=== PATIENT | male | born 1975 | race Caucasian/White ===

== ENCOUNTER 2020-10-17 10:44 | Inpatient (IN) | payer OTHER ==
[2020-10-17 11:14] VITALS: BMI 36.3
[2020-10-17] MEDS ORDERED: MAGNESIUM CITRATE 300 ML BOTTLE PO PRN (15:05)
[2020-10-17] MEDS ORDERED: BISMUTH SUBSALICYLATE 262 MG/15 ML BTL PO PRN (15:05)
[2020-10-17] MEDS ORDERED: METHOCARBAMOL 500 MG TABLET PO PRN (15:05)
[2020-10-17] MEDS ORDERED: NICOTINE POLACRILEX 2 MG GUM BUC PRN (15:05)
[2020-10-17] MEDS ORDERED: MAG HYDROX/AL HYDROX/SIMETH 30 ML UNIT-DOSE CUP PO PRN (15:05)
[2020-10-17] MEDS ORDERED: MAGNESIUM HYDROX 2400MG/30ML ORAL SUSPENSION 30 ML CUP PO PRN (15:05)
[2020-10-17] MEDS ORDERED: ACETAMINOPHEN 325 MG TABLET (FP) PO PRN ×2 (15:05)
[2020-10-17] MEDS ORDERED: MENTHOL/PHENOL 1 EACH UD MM PRN (15:05)
[2020-10-17] MEDS: hydrOXYzine PAMOATE 25 MG CAPSULE (FP) PO SCH ×2 (17:37→22:24)
[2020-10-17] MEDS: diazePAM 5 MG TABLET PO SCH ×2 (17:37→22:24)
[2020-10-17] MEDS: THIAMINE HCL 100 MG TABLET (FP) PO SCH (22:24)
[2020-10-17] MEDS: MELATONIN 5 MG TABLETS PO SCH (22:24)
[2020-10-18] MEDS: diazePAM 5 MG TABLET PO SCH ×4 (05:28→22:09)
[2020-10-18] MEDS: hydrOXYzine PAMOATE 25 MG CAPSULE (FP) PO SCH ×5 (05:28→22:09)
[2020-10-18] MEDS: IBUPROFEN 400 MG TABLET (FP) PO PRN (05:30)
[2020-10-18] MEDS ORDERED: METHADONE HCL 10 MG TABLET PO SCH (10:00)
[2020-10-18] MEDS ORDERED: METHADONE HCL 10 MG TABLET ONE (10:22)
[2020-10-18] MEDS ORDERED: METHADONE HCL 40 MG DISPERSABLE TABLET ONE (10:23)
[2020-10-18] MEDS: METHADONE 120 MG, METHADONE 20 MG PO SCH (10:23)
[2020-10-18] MEDS: PRENATAL VITAMINS W/ FOLIC ACID TABLET (FP) PO SCH (10:24)
[2020-10-18] MEDS: NICOTINE 14 MG/24 HOURS TOPICAL PATCH TD SCH (10:25)
[2020-10-18] MEDS: ATOMOXETINE HCL 25 MG CAPSULE PO SCH (11:50)
[2020-10-18] MEDS: ONDANSETRON *ODT* 4 MG TABLET SL PRN (17:44)
[2020-10-18] MEDS: MELATONIN 5 MG TABLETS PO SCH (22:09)
[2020-10-18] MEDS: THIAMINE HCL 100 MG TABLET (FP) PO SCH (22:09)
[2020-10-19] MEDS ORDERED: METHADONE HCL 10 MG TABLET ONE (04:11)
[2020-10-19] MEDS ORDERED: METHADONE HCL 40 MG DISPERSABLE TABLET ONE (04:12)
[2020-10-19] MEDS: METHADONE 120 MG, METHADONE 20 MG PO SCH (05:34)
[2020-10-19] MEDS: hydrOXYzine PAMOATE 25 MG CAPSULE (FP) PO SCH ×5 (05:35→22:21)
[2020-10-19] MEDS: diazePAM 5 MG TABLET PO SCH ×3 (05:35→22:21)
[2020-10-19 10:12] LABS: HEMATOCRIT 38.8 % (35.4-49); HEMOGLOBIN 12.8 GM/dL (11.7-16.9); MCH 32.1 pg (25.7-33.7); MEAN CELL VOLUME 97.2 fl (80-96); MEAN PLT VOLUME 9.2 fl (7.5-11.1); PLATELET COUNT 297 10^3/uL (134-434); RBC 3.99 M/mm3 (4.00-5.60); RDW 13.2 % (11.9-15.9); WHITE BLOOD COUNT 5.1 K/mm3 (4.0-10.0)
[2020-10-19 10:14] LABS: ALBUMIN 3.2 g/dl (3.4-5.0)
[2020-10-19 10:17] LABS: CREATININE 0.7 mg/dL (0.55-1.3)
[2020-10-19 10:18] LABS: BILIRUBIN,TOTAL 0.2 mg/dL (0.2-1); TOT PROT 7.6 g/dl (6.4-8.2)
[2020-10-19] MEDS: diazePAM 5 MG TABLET PO PRN ×2 (10:22→17:46)
[2020-10-19] MEDS: PRENATAL VITAMINS W/ FOLIC ACID TABLET (FP) PO SCH (10:22)
[2020-10-19] MEDS: ATOMOXETINE HCL 25 MG CAPSULE PO SCH (10:23)
[2020-10-19] MEDS: NICOTINE 14 MG/24 HOURS TOPICAL PATCH TD SCH (10:24)
[2020-10-19] MEDS: IBUPROFEN 400 MG TABLET (FP) PO PRN (10:25)
[2020-10-19] MEDS: ONDANSETRON *ODT* 4 MG TABLET SL PRN (17:48)
[2020-10-19] MEDS: MELATONIN 5 MG TABLETS PO SCH (22:20)
[2020-10-19] MEDS: THIAMINE HCL 100 MG TABLET (FP) PO SCH (22:20)
[2020-10-20] MEDS ORDERED: METHADONE HCL 10 MG TABLET ONE (04:25)
[2020-10-20] MEDS ORDERED: METHADONE HCL 40 MG DISPERSABLE TABLET ONE (04:26)
[2020-10-20] MEDS: hydrOXYzine PAMOATE 25 MG CAPSULE (FP) PO SCH ×5 (05:52→21:35)
[2020-10-20] MEDS: diazePAM 5 MG TABLET PO SCH ×2 (05:53→17:23)
[2020-10-20] MEDS: METHADONE 120 MG, METHADONE 20 MG PO SCH (05:53)
[2020-10-20] MEDS: ONDANSETRON *ODT* 4 MG TABLET SL PRN (05:57)
[2020-10-20] MEDS: PRENATAL VITAMINS W/ FOLIC ACID TABLET (FP) PO SCH (10:11)
[2020-10-20] MEDS: NICOTINE 14 MG/24 HOURS TOPICAL PATCH TD SCH (10:12)
[2020-10-20] MEDS: ATOMOXETINE HCL 25 MG CAPSULE PO SCH (10:12)
[2020-10-20] MEDS: THIAMINE HCL 100 MG TABLET (FP) PO SCH (21:35)
[2020-10-20] MEDS: MELATONIN 5 MG TABLETS PO SCH (21:35)
[2020-10-21] MEDS ORDERED: METHADONE HCL 10 MG TABLET ONE (04:22)
[2020-10-21] MEDS ORDERED: METHADONE HCL 40 MG DISPERSABLE TABLET ONE (04:22)
[2020-10-21] MEDS: hydrOXYzine PAMOATE 25 MG CAPSULE (FP) PO SCH ×2 (05:40→10:10)
[2020-10-21] MEDS: METHADONE 120 MG, METHADONE 20 MG PO SCH (05:40)
[2020-10-21] MEDS ORDERED: diazePAM 5 MG TABLET PO ONE (06:00)
[2020-10-21 09:10] VITALS: BP 107/74; PULSE 68; TEMP 96.9
[2020-10-21 10:07] LABS: SARS-CoV-2 NAA Not Detected (Not Detected)
[2020-10-21] MEDS: PRENATAL VITAMINS W/ FOLIC ACID TABLET (FP) PO SCH (10:10)
[2020-10-21] MEDS: NICOTINE 14 MG/24 HOURS TOPICAL PATCH TD SCH (10:11)
[2020-10-21] MEDS: ATOMOXETINE HCL 25 MG CAPSULE PO SCH (10:11)
== END 2020-10-21 12:33 | disposition other institution (70) | DRG 773 ==
LOC: YASAS 10:44 → Y3N 15:31
PROVIDERS: ADMIT Allergy & Immunology; ATTEND Allergy & Immunology
PROC: HZ2ZZZZ Detoxification Services for Substance Abuse Treatment (ICD-10-PCS; principal; 2020-10-17)
DX: F10.230 Alcohol dependence with withdrawal, uncomplicated (principal); F11.20 Opioid dependence, uncomplicated; F14.20 Cocaine dependence, uncomplicated; F13.20 Sedative, hypnotic or anxiolytic dependence, uncomplicated; F17.210 Nicotine dependence, cigarettes, uncomplicated; F31.9 Bipolar disorder, unspecified; F19.24 Other psychoactive substance dependence with psychoactive substance-induced mood disorder; F19.280 Other psychoactive substance dependence with psychoactive substance-induced anxiety disorder; F19.282 Other psychoactive substance dependence with psychoactive substance-induced sleep disorder; F63.81 Intermittent explosive disorder; J44.9 Chronic obstructive pulmonary disease, unspecified; E78.5 Hyperlipidemia, unspecified; K59.00 Constipation, unspecified; M54.5 Low back pain; G89.29 Other chronic pain; B18.2 Chronic viral hepatitis C; Z62.810 Personal history of physical and sexual abuse in childhood; Z99.89 Dependence on other enabling machines and devices
CPT/HCPCS: 36415; 80053; 85027; 86780; C9803; Q0162; U0003; U0005

== ENCOUNTER 2020-10-21 12:37 | Inpatient (IN) | payer OTHER ==
[2020-10-21] MEDS ORDERED: hydrOXYzine PAMOATE 25 MG CAPSULE (FP) PO PRN (13:42)
[2020-10-21] MEDS ORDERED: MAGNESIUM HYDROX 2400MG/30ML ORAL SUSPENSION 30 ML CUP PO PRN (13:42)
[2020-10-21] MEDS ORDERED: guaiFENesin 200 MG/10 ML 10 ML UNIT-DOSE CUPS PO PRN (13:42)
[2020-10-21] MEDS ORDERED: LOPERAMIDE HCL 2 MG CAPSULE PO PRN (13:42)
[2020-10-21] MEDS ORDERED: ACETAMINOPHEN 325 MG TABLET (FP) PO PRN (13:42)
[2020-10-21] MEDS ORDERED: P-EPHED 60MG/TRIPROLIDI 2.5MG TABLET PO PRN (13:42)
[2020-10-21] MEDS ORDERED: MAGNESIUM CITRATE 300 ML BOTTLE PO PRN (13:42)
[2020-10-21] MEDS ORDERED: NICOTINE POLACRILEX 2 MG GUM BUC PRN (13:42)
[2020-10-21] MEDS ORDERED: MENTHOL/PHENOL 1 EACH UD MM PRN (13:42)
[2020-10-21] MEDS ORDERED: MAG HYDROX/AL HYDROX/SIMETH 30 ML UNIT-DOSE CUP PO PRN (13:42)
[2020-10-21] MEDS ORDERED: IBUPROFEN 400 MG TABLET (FP) PO PRN (13:42)
[2020-10-21] MEDS: MELATONIN 5 MG TABLETS PO SCH (21:33)
[2020-10-21] MEDS: THIAMINE HCL 100 MG TABLET (FP) PO SCH (21:33)
[2020-10-22] MEDS ORDERED: METHADONE HCL 40 MG DISPERSABLE TABLET ONE (05:52)
[2020-10-22] MEDS ORDERED: METHADONE HCL 10 MG TABLET ONE (05:52)
[2020-10-22] MEDS ORDERED: METHADONE HCL 10 MG TABLET PO SCH (06:00)
[2020-10-22] MEDS: METHADONE 120 MG, METHADONE 20 MG PO SCH (06:07)
[2020-10-22] MEDS: PRENATAL VITAMINS W/ FOLIC ACID TABLET (FP) PO SCH (09:45)
[2020-10-22] MEDS: ATOMOXETINE HCL 25 MG CAPSULE PO SCH (09:45)
[2020-10-22] MEDS: NICOTINE 14 MG/24 HOURS TOPICAL PATCH TD SCH (09:46)
[2020-10-22] MEDS: THIAMINE HCL 100 MG TABLET (FP) PO SCH (21:06)
[2020-10-22] MEDS: MELATONIN 5 MG TABLETS PO SCH (21:06)
[2020-10-23] MEDS ORDERED: METHADONE HCL 40 MG DISPERSABLE TABLET ONE (03:39)
[2020-10-23] MEDS ORDERED: METHADONE HCL 10 MG TABLET ONE (03:39)
[2020-10-23] MEDS: METHADONE 120 MG, METHADONE 20 MG PO SCH (06:19)
[2020-10-23 06:35] VITALS: BP 110/66; PULSE 60; TEMP 96.9
[2020-10-23] MEDS: PRENATAL VITAMINS W/ FOLIC ACID TABLET (FP) PO SCH (09:44)
[2020-10-23] MEDS: ATOMOXETINE HCL 25 MG CAPSULE PO SCH (09:45)
[2020-10-23] MEDS: NICOTINE 14 MG/24 HOURS TOPICAL PATCH TD SCH (09:45)
== END 2020-10-23 15:16 | disposition home or self-care (01) | DRG 772 ==
LOC: YASAS 12:37 → Y3W 12:38
PROVIDERS: ADMIT Allergy & Immunology; ATTEND Allergy & Immunology
PROC: HZ42ZZZ Group Counseling for Substance Abuse Treatment, Cognitive-Behavioral (ICD-10-PCS; principal; 2020-10-21)
DX: F10.20 Alcohol dependence, uncomplicated (principal); F11.20 Opioid dependence, uncomplicated; F14.20 Cocaine dependence, uncomplicated; F13.20 Sedative, hypnotic or anxiolytic dependence, uncomplicated; F12.20 Cannabis dependence, uncomplicated